=== PATIENT | male | born 1975 | race Caucasian/White ===

== ENCOUNTER 2017-01-05 09:23 | Emergency (ER) | payer MEDICAID ==
[2017-01-05 09:34] VITALS: BMI 36.2
--- NOTE | 2017-01-05 09:47 | EDPRACDOC ---
- General Information Chief Complaint: Back Pain Stated Complaint: LOWER BACK PAIN Time Seen by Provider: 01/05/17 09:37 Information Source: Patient Mode Of Arrival: Car Home Medications: Home Medications Diltiazem HCl [Cardizem Cd, Tiazac, Dilacor Xr] 120 mg PO DAILY 10/13/12 Metoprolol Tartrate 25 mg PO DAILY PRN MDD 50MG/24HOURS 01/23/15 Aspirin 81 mg PO QHS 05/07/15 Alprazolam [Xanax] 0.5 mg PO TID PRN 10/28/16 Ciprofloxacin HCl [Cipro] 500 mg PO BID #20 tab 10/28/16 Oxycodone HCl/Acetaminophen [Percocet 5-325 mg Tablet] 1 each PO Q4 #20 tablet 10/28/16 Diazepam [Valium] 5 mg PO TID PRN #15 tablet 01/05/17 Ondansetron HCl [Zofran] 4 mg PO Q8H PRN #20 tab 01/05/17 Oxycodone HCl/Acetaminophen [Percocet 5-325 mg Tablet] 1 tab PO Q6H PRN #20 tab 01/05/17 Prednisone [Deltasone, Orasone] 20 mg PO DAILY #20 tab 01/05/17 Allergies/Adverse Reactions: Allergies Allergy/AdvReac Type Severity Reaction Status Date / Time tramadol Allergy Severe Anaphylaxis Verified 01/05/17 09:34 * acetaminophen [From Percocet] Allergy Nausea/Vomi Verified 01/05/17 09:34 ting oxycodone [From Percocet] Allergy Nausea/Vomi Verified 01/05/17 09:34 ting - History of Present Illness Onset: YEST AM HPI: Pt c/o lower back pain radiating to L leg x 2 days. Denies abd pain, n/v, loss of control bowel or bladder, rash. Pt c/o tingling in L leg. Denies injury. Pain Location: Reports: Left, Lumbar Pain Radiates To: Reports: Thigh, Buttock Pain Caused By: Reports: Spontaneous Circumstances: Reports: Unknown Relevant History: Reports: Chronic back pain Pain Severity: Reports: Moderate Pain Quality: Reports: Sharp, Stabbing Worsened By: Reports: Movement, Twisting, Walking Associated Signs and Symptoms: Reports: None ED Past Medical History - History Reviewed Yes Nurses notes reviewed and agree except as marked - Patient Medical History Cardiac History: Reports: Atrial Fibrillation GI/ History: Reports: Kidney (Renal Surgery) (RIGHT KIDNEY AND ATROPHY FROM SEVERE REFLUX), Kidney Stones Psychological History: Denies: Depression Surgical History: Reports: Tonsillectomy/Adnoidectomy - Social Medical History Smoking Status: Former smoker ETOH: None Substance Abuse: None EDM Review of Systems - Review of Systems Constitutional: No Symptoms Reported. negative: Fever, Chills, Weakness, Fatigue, Loss of Appetite Respiratory: No Symptoms Reported. negative: Cough, Brassy Cough, Barky Cough, Shortness of Breath, Wheezing, Hemoptysis Cardiovascular: No Symptoms Reported. negative: Chest Pain, Palpitations, Syncope, Edema, Orthopnea, PND, Skin Mottling, Cyanosis Gastrointestinal: No Symptoms Reported. negative: Pain, Constipation, Nausea, Vomiting, Diarrhea, Melena, Formula Intolerance Genitourinary: No Symptoms Reported. negative: Dysuria, Hematuria, Frequency, Discharge, Bleeding, Testicular Pain, Neurological: Tingling Musculoskeletal: Back, Femur Integumentary: No Symptoms Reported. negative: Itching, Rash, Bruising, Wound Allergic/Immunologic: No Symptoms Reported. negative: Hives, Itching Hematologic: No Symptoms Reported. negative: Lymphadenopathy, Easy Bruising, Easy Bleeding Psychiatric: No Symptoms Reported. negative: Anxiety, Depression, Hallucinations, Insomnia, Suicidal - Physical Exam Constitutional: Alert Oriented to: Time, Person, Place Last recorded Vital Signs: Last Vital Signs Temp 98.8 F 01/05/17 09:30 Pulse 78 01/05/17 09:30 Resp 18 01/05/17 09:30 BP 133/72 01/05/17 09:30 Pulse Ox 94 01/05/17 09:30 Oxygen Pulse Oxygen Saturation 94 O2 Device Oxygen Flow Rate Fraction of Inspired Oxygen ( FIO2) - HEENT Head: Normal ( normocephalic) Eye Exam: Normal (PERRL, EOMI, Sclera white) Neck: Normal (FROM, trachea at midline) - Respiratory/Cardiovascular Respiratory: Normal - CTA (BBS clear to auscultation without adventitious sounds ) Cardiovascular: Normal (RRR without murmur, gallop or rub) - GI Auscultation: Normal (NABS) Palpation: Normal (Soft,No rebound or guarding, non distended) Tenderness: Non tender - Musculoskeletal Back: Lumbar TTP Extremities: Normal (Normal tone, Pulses 2+ No cyanosis or edema, FROM) - Integumentary Skin: Normal, Warm, Dry Lymphatics: Normal (no adenopathy) - Neurologic Memory Impaired: Normal Motor Function: Normal (Normal tone, Pulses 2+ No cyanosis or edema, FROM) Mood Description: Normal Perception: Normal ED Back Exam - Neurologic Motor Deficit: None (strength 5/5, sensation nl) Reflexes: Normal (CN II-X11 intact) - Musculoskeletal Cervical: Normal Thoracic: Normal Lumbar: Tender Midline: Tender Paraspinous: Tender Straight Leg Raise: Positive (L) Pelvis: Normal - Differential Diagnosis HNP, Musculoskeletal pain, Strain Decision Time to Discharge: 09:48 - Departure Disposition: Home Condition: Good Final Diagnosis: Lumbar radiculopathy Instructions: Lumbar Radiculopathy (ED) Education/Counseling Given To: Patient Education/Counseling Given Regarding: Diagnosis, Treatment, Follow Up Referrals: Mau Colon MD [Primary Care Provider] - One Week Brannon Angeles MD [Staff Physician] - One Week Prescriptions: New Diazepam [Valium] 5 mg PO TID PRN #15 tablet PRN Reason: Muscle Spasms Ondansetron HCl [Zofran] 4 mg PO Q8H PRN #20 tab PRN Reason: Nausea/Vomiting Oxycodone HCl/Acetaminophen [Percocet 5-325 mg Tablet] 1 tab PO Q6H PRN #20 tab PRN Reason: Pain Prednisone [Deltasone, Orasone] 20 mg PO DAILY #20 tab No Action Diltiazem HCl [Cardizem Cd, Tiazac, Dilacor Xr] 120 mg PO DAILY Metoprolol Tartrate 25 mg PO DAILY PRN MDD 50MG/24HOURS PRN Reason: PALPITATIONS Aspirin 81 mg PO QHS Alprazolam [Xanax] 0.5 mg PO TID PRN PRN Reason: Anxiety Ciprofloxacin HCl [Cipro] 500 mg PO BID #20 tab Oxycodone HCl/Acetaminophen [Percocet 5-325 mg Tablet] 1 each PO Q4 #20 tablet Additional Instructions: Return to the Emergency Department immediately for any numbness in your perineal area or genitalia, any bowel or bladder incontinence or retention (not related to constipation).
[2017-01-05 09:54] VITALS: BP 124/69; PULSE 74; TEMP 97.4
== END 2017-01-05 10:07 | disposition home or self-care (01) ==
LOC: ED 09:23
DX: M54.16 Radiculopathy, lumbar region (principal)
CPT/HCPCS: 99283